=== PATIENT | male | born 1970 | race Caucasian/White ===

== ENCOUNTER 2024-07-09 04:32 | Inpatient (IN) | payer MEDICAID ==
[~2024-07-09] VITALS: Ht 182.9 cm; Wt 125.6 kg
[2024-07-09] VITALS (7 sets, daily range): BP systolic 100–146; BP diastolic 74–85; PULSE 83–89; RESP 21–29; TEMP 36.9–37.6; O2SAT 95–98
[2024-07-09] MEDS: ASPIRIN 81MG TABLET PO ONE (05:13)
[2024-07-09] MEDS: NITROGLYCERIN 0.4MG TABLET SL SL PRN (05:36)
[2024-07-09 05:54] LABS: BASOPHILS % 0.5 % (0.0-2.0); EOSINOPHILS % 1.2 % (0.0-5.0); HEMATOCRIT. 47.1 % (42.0-52.0); LYMPHOCYTES % 13.5 % (20.0-50.0); MEAN CORPUSCULAR HEMOGLOBIN 29.4 pg (28.0-32.0); MEAN CORPUSCULAR VOLUME 86.7 fL (80.0-94.0); MEAN PLATELET VOLUME 7.4 fl (7.4-10.4); MONOCYTES % 6.5 % (2.0-8.0); NEUTROPHILS % 78.3 % (40.0-76.0); PLATELET 224 x1000/uL (130-400); RED BLOOD CELL COUNT 5.43 mill/uL (4.7-6.1); RED CELL DISTRIBUTION WIDTH 14.5 % (11.6-14.6)
[2024-07-09 05:57] LABS: CHLORIDE 106 mEq/L (98-107); POTASSIUM 3.6 mEq/L (3.5-5.1); SODIUM 136 mEq/L (136-145)
[2024-07-09 05:58] LABS: CALCIUM 8.6 mg/dL (8.7-10.4); CARBON DIOXIDE 23 mEq/L (21-32)
[2024-07-09 06:03] LABS: CREATININE 0.8 mg/dL (0.6-1.3); GLUCOSE 170 mg/dL (70-105); UREA NITROGEN BLOOD 8 mg/dL (9-23)
[2024-07-09 06:51] LABS: TROPONIN I HIGH SENSITIVITY 85 ng/L (3.0-53)
[2024-07-09 08:16] LABS: TROPONIN I HIGH SENSITIVITY 318 ng/L (3.0-53)
[2024-07-09] MEDS: IOHEXOL-350 100 ML BOTTLE ONE (08:40)
[2024-07-09] MEDS ORDERED: IPRATROPIUM/ALBUTEROL 0.5-3(2.5)MG/3ML NEB HHN PRN (09:30)
[2024-07-09] MEDS ORDERED: ACETAMINOPHEN 325MG TABLET PO PRN (09:30)
[2024-07-09] MEDS ORDERED: ONDANSETRON HCL 4MG/2ML INJ IV PRN (09:30)
[2024-07-09] MEDS ORDERED: DOCUSATE SODIUM 100MG CAPSULE PO PRN (09:30)
[2024-07-09] MEDS ORDERED: CLONIDINE 0.1MG TABLET PO PRN (09:30)
[2024-07-09] MEDS ORDERED: NALOXONE HCL 0.4MG/ML VIAL IV PRN (09:45)
[2024-07-09 11:13] LABS: THYROID STIMULATING HORMONE 2.52 uIU/mL (0.55-4.78)
[2024-07-09 11:40] LABS: BG BASE EXCESS -2.6 mmol/L (-2.0-3.0); BG CARBOXYHEMOGLOBIN 0.3 % (0.5-1.5); BG DEOXYHEMOGLOBIN 0.5 % (0.0-5.0); BG FRACTION INSPIRED OXYGEN 100; BG HCO3 ACT 22.2 mmol/L (21.0-28.0); BG METHEMOGLOBIN 0.3 % (0.5-1.5); BG OXYGEN SATURATION 99.5 % (94.0-98.0); BG OXYHEMOGLOBIN 98.9 % (94.0-98.0); BG PCO2 38.8 mmHg (35.0-48.0); BG PH 7.376 (7.350-7.450); BG PO2 190.6 mmHg (83.0-108.0); BG SAMPLE SITE RIGHT RADIAL; BG TOTAL HEMOGLOBIN 16.5 g/dL (13.5-17.5); BG VENT MODE MASK - NRB
[2024-07-09] MEDS: NITROGLYCERIN OINT 1GM/INCH UDPKT TD NR (12:16)
[2024-07-09] MEDS: ENOXAPARIN 120MG/0.8ML SYR SUBCUT SCH (12:18)
[2024-07-09 14:20] LABS: TROPONIN I HIGH SENSITIVITY 781 ng/L (3.0-53)
[2024-07-09] MEDS: CEFTRIAXONE 1GM/50ML 50 ML IV SCH (16:25)
[2024-07-09] MEDS: AZITHROMYCIN 500MG/250ML 250 ML IV SCH (16:25)
[2024-07-09] MEDS: NITROGLYCERIN OINT 1GM/INCH UDPKT TD SCH (18:49)
[2024-07-09 19:02] LABS: TROPONIN I HIGH SENSITIVITY 668 ng/L (3.0-53)
[2024-07-09 19:33] LABS: *AMPHETAMINES SCREEN URINE PRESUMPTIVE POSITIVE (NEGATIVE); *BARBITURATES SCREEN URINE NEGATIVE (NEGATIVE); *BENZODIAZEPINES SCREEN URINE NEGATIVE (NEGATIVE); *COCAINE SCREEN URINE NEGATIVE (NEGATIVE); METHADONE URINE SCREEN NEGATIVE (NEGATIVE)
[2024-07-09 19:34] LABS: CANNABINOID URINE SCREEN PRESUMPTIVE POSITIVE (NEGATIVE); ECSTASY MDMA SCREEN URINE NEGATIVE (NEGATIVE); OPIATES URINE SCREEN NEGATIVE (NEGATIVE); PHENCYCLIDINE URINE SCREEN PRESUMTIVE POSITIVE (NEGATIVE)
[2024-07-10] VITALS (8 sets, daily range): BP systolic 83–138; BP diastolic 49–87; PULSE 80–91; RESP 14–19; TEMP 36.6–37.1; O2SAT 95–100
[2024-07-10] MEDS: MORPHINE SULFATE 2 MG/ML INJ (NOT FOR IM USE) IV PRN (01:28)
[2024-07-10] MEDS: ACETAMINOPHEN 325MG TABLET PO PRN (04:33)
[2024-07-10 06:27] LABS: CHLORIDE 105 mEq/L (98-107); POTASSIUM 3.5 mEq/L (3.5-5.1); SODIUM 138 mEq/L (136-145)
[2024-07-10 06:31] LABS: CARBON DIOXIDE 26 mEq/L (21-32)
[2024-07-10 06:32] LABS: BASOPHILS % 0.4 % (0.0-2.0); CALCIUM 8.3 mg/dL (8.7-10.4); EOSINOPHILS % 2.1 % (0.0-5.0); HEMATOCRIT. 42.7 % (42.0-52.0); HEMOGLOBIN. 14.6 g/dL (14.0-18.0); LYMPHOCYTES % 27.1 % (20.0-50.0); MEAN CORPUSCULAR HEMOGLOBIN 29.3 pg (28.0-32.0); MEAN CORPUSCULAR HGB CONC 34.1 g/dL (31.0-37.0); MEAN CORPUSCULAR VOLUME 85.9 fL (80.0-94.0); MEAN PLATELET VOLUME 7.7 fl (7.4-10.4); MONOCYTES % 8.2 % (2.0-8.0); NEUTROPHILS % 62.2 % (40.0-76.0); PLATELET 209 x1000/uL (130-400); RED BLOOD CELL COUNT 4.97 mill/uL (4.7-6.1); RED CELL DISTRIBUTION WIDTH 14.6 % (11.6-14.6); WHITE BLOOD COUNT 9.8 x1000/uL (4.5-11.0)
[2024-07-10 06:37] LABS: ALANINE AMINOTRANSFERASE 33 IU/L (10-49); CREATININE 0.7 mg/dL (0.6-1.3); GLUCOSE 95 mg/dL (70-105); UREA NITROGEN BLOOD 7 mg/dL (9-23)
[2024-07-10 06:39] LABS: ASPARTATE AMINOTRANSFERASE 26 IU/L (<34); BILIRUBIN TOTAL 0.8 mg/dL (0.1-1.0)
[2024-07-10 08:05] LABS: TROPONIN I HIGH SENSITIVITY 390 ng/L (3.0-53)
[2024-07-10] MEDS: ASPIRIN 81MG TABLET PO SCH (09:21)
[2024-07-10 10:35] LABS: BG BASE EXCESS -1.3 mmol/L (-2.0-3.0); BG CARBOXYHEMOGLOBIN 1.2 % (0.5-1.5); BG DEOXYHEMOGLOBIN 2.4 % (0.0-5.0); BG FRACTION INSPIRED OXYGEN 40; BG HCO3 ACT 23.9 mmol/L (21.0-28.0); BG METHEMOGLOBIN 0.3 % (0.5-1.5); BG OXYGEN SATURATION 97.6 % (94.0-98.0); BG OXYHEMOGLOBIN 96.1 % (94.0-98.0); BG PH 7.373 (7.350-7.450); BG PO2 97.3 mmHg (83.0-108.0); BG SAMPLE SITE RIGHT RADIAL; BG VENT MODE NASAL CANNULA
[2024-07-10] MEDS: HYDROCODONE/ACETAMINOPHEN 5/325MG TABLET PO PRN (13:56)
[2024-07-10] MEDS: NITROGLYCERIN OINT 1GM/INCH UDPKT TD SCH (20:56)
[2024-07-11] VITALS: BP 121/84; PULSE 83; RESP 16; TEMP 37.1; O2SAT 93
[2024-07-11 04:00] VITALS: BP 109/61; PULSE 79; RESP 15; TEMP 36.9; O2SAT 93
[2024-07-11 06:22] LABS: CALCIUM 8.7 mg/dL (8.7-10.4); CARBON DIOXIDE 27 mEq/L (21-32); CHLORIDE 103 mEq/L (98-107); POTASSIUM 3.6 mEq/L (3.5-5.1); SODIUM 138 mEq/L (136-145)
[2024-07-11 06:27] LABS: CREATININE 0.8 mg/dL (0.6-1.3); GLUCOSE 111 mg/dL (70-105); UREA NITROGEN BLOOD 8 mg/dL (9-23)
[2024-07-11 06:30] LABS: BASOPHILS % 0.6 % (0.0-2.0); EOSINOPHILS % 2.8 % (0.0-5.0); HEMATOCRIT. 40.7 % (42.0-52.0); HEMOGLOBIN. 14.1 g/dL (14.0-18.0); LYMPHOCYTES % 28.9 % (20.0-50.0); MEAN CORPUSCULAR HEMOGLOBIN 29.7 pg (28.0-32.0); MEAN CORPUSCULAR HGB CONC 34.5 g/dL (31.0-37.0); MEAN PLATELET VOLUME 7.5 fl (7.4-10.4); MONOCYTES % 8.7 % (2.0-8.0); PLATELET 173 x1000/uL (130-400); RED BLOOD CELL COUNT 4.74 mill/uL (4.7-6.1); RED CELL DISTRIBUTION WIDTH 14.2 % (11.6-14.6); WHITE BLOOD COUNT 7.2 x1000/uL (4.5-11.0)
[2024-07-11 06:45] LABS: TROPONIN I HIGH SENSITIVITY 205 ng/L (3.0-53)
[2024-07-11 08:00] VITALS: BP 146/80; PULSE 79; RESP 16; TEMP 37.2; O2SAT 94
[2024-07-11] MEDS ORDERED: ALBU18HF2 IH (08:31)
[2024-07-11] MEDS ORDERED: ASPI-1160 PO (08:31)
[2024-07-11] MEDS ORDERED: AZIT500T8 MT (08:31)
[2024-07-11 12:00] VITALS: PULSE 74; RESP 18; TEMP 37.1; O2SAT 94
[2024-07-11] MEDS ORDERED: ATOR10TA69 MT (13:27)
[2024-07-11] MEDS: POTASSIUM CHLORIDE 10MEQ TABLET SR PO NR (13:42)
[2024-07-11] MEDS ORDERED: POTASSIUM CHLORIDE 20MEQ/PACKET PO ONE (13:45)
[2024-07-11 13:52] VITALS: BP 146/80; PULSE 79; TEMP 99; O2SAT 95
[2024-07-11] MEDS ORDERED: ATORVASTATIN CALCIUM 10MG TABLET PO SCH (21:00)
[2024-07-12] MEDS ORDERED: AZITHROMYCIN 500 MG TABLET PO SCH (15:00)
== END 2024-07-11 14:30 | disposition home or self-care (01) | DRG 190 ==
LOC: ER 04:32 → EDBEDREQ 06:31 → ENRESERV 08:03 → 3WST 08:28 → MICUSO 09:27 → 5EST 10:41
PROVIDERS: ADMIT Internal Medicine; ATTEND Internal Medicine
DX: I20.1 Angina pectoris with documented spasm (principal); I21.A1 Myocardial infarction type 2; J96.21 Acute and chronic respiratory failure with hypoxia; J90 Pleural effusion, not elsewhere classified; E87.70 Fluid overload, unspecified; J18.9 Pneumonia, unspecified organism; K76.0 Fatty (change of) liver, not elsewhere classified; J44.0 Chronic obstructive pulmonary disease with (acute) lower respiratory infection; R07.89 Other chest pain; G47.33 Obstructive sleep apnea (adult) (pediatric); E66.9 Obesity, unspecified; F15.90 Other stimulant use, unspecified, uncomplicated; F12.90 Cannabis use, unspecified, uncomplicated; F17.210 Nicotine dependence, cigarettes, uncomplicated; M06.9 Rheumatoid arthritis, unspecified; R79.89 Other specified abnormal findings of blood chemistry; I10 Essential (primary) hypertension; Z68.36 Body mass index [BMI] 36.0-36.9, adult; Z71.6 Tobacco abuse counseling; Z79.82 Long term (current) use of aspirin; Z90.49 Acquired absence of other specified parts of digestive tract
CPT/HCPCS: 36415; 36600; 71045; 71275; 80048; 80053; 80061; 80305; 82375; 82805; 83036; 83735; 83880; 84443; 84484; 85025; 93005; 93306; 99285; J0456; J0696; J1650; J2270; Q9967